=== PATIENT | male | born 1965 | race Hispanic/Latino ===

== ENCOUNTER 2019-06-15 20:05 | Emergency (ER) | payer MEDICAID ==
[2019-06-15] MEDS ORDERED: TETANUS/DIPHTHERIA TOXOID [ADULT] 0.5 ML VIAL IM ONE (20:32)
== END 2019-06-16 00:01 | disposition home or self-care (01) ==
LOC: EDH 20:05
DX: S00.01XA Abrasion of scalp, initial encounter (principal); F10.10 Alcohol abuse, uncomplicated; R07.89 Other chest pain; F31.9 Bipolar disorder, unspecified; F20.9 Schizophrenia, unspecified; Y90.9 Presence of alcohol in blood, level not specified; Y04.0XXA Assault by unarmed brawl or fight, initial encounter; Y93.89 Activity, other specified; Y92.89 Other specified places as the place of occurrence of the external cause; Y99.8 Other external cause status
CPT/HCPCS: 70450; 71045; 72125; 90471; 90714

== ENCOUNTER 2020-04-17 11:03 | Emergency (ER) | payer MEDICAID ==
[2020-04-17 11:39] LABS: RAPID GROUP A STREP NEGATIVE (NEGATIVE)
== END 2020-04-17 13:45 | disposition home or self-care (01) ==
LOC: EEVIPCON 11:03 → EDH 11:03
DX: M79.10 Myalgia, unspecified site (principal); F32.9 Major depressive disorder, single episode, unspecified; Z72.0 Tobacco use; F20.9 Schizophrenia, unspecified
CPT/HCPCS: 87804; 87880